=== PATIENT | female | born 2005 | race Caucasian/White ===

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

== ENCOUNTER 2024-02-21 22:07 | Emergency (ER) | payer BC, SELFPAY ==
[2024-02-21 22:51] VITALS: BP 123/76; PULSE 85; RESP 16; TEMP 36.6; O2SAT 100
[2024-02-21 22:56] LABS: BEDSIDEPREGUCG Negative (Negative)
[2024-02-21 23:06] LABS: Add Urine Microscopic? YES; Appearance Urine Clear (Clear); Bilirubin Urine Negative (Negative); Blood Urine Trace (Negative); Color Urine Yellow (Yellow); Glucose Urine UA Negative (Negative); Ketones Urine Negative (Negative); Leukocyte Esterase Ur 3+ LEU/UL (Negative); Nitrate Urine Negative (Negative); Protein Urine Negative (Negative); RBC Urine 0-2 /hpf (0-2); Specific Grav Ur 1.003 (1.001-1.035); Urobilinogen Urine 0.2 mg/dL (<2.0); WBC Urine 21-50 /hpf (0-3)
[2024-02-21 23:07] LABS: Bacteria Urine None Seen /hpf; Non Pathogenic Casts 0-2; Squamous Epithelial Cell Urine None Seen /hpf (Few)
--- NOTE | 2024-02-22 00:05 | ED.GENADULT ---
HPI - General Adult General Chief complaint: Urogenital-Female Stated complaint: uti Time Seen by Provider: 02/21/24 23:40 History of Present Illness HPI narrative: 18-year-old female presents to the emergency department for evaluation for urinary symptoms that started approximately 2 days ago. Patient denies any pain with urination but does report increased urinary frequency. Patient denies any prior history kidney stones, patient denies any flank pain denies any associated nausea vomiting. Related Data Allergies Allergy/AdvReac Type Severity Reaction Status Date / Time No Known Allergies Allergy Mild Verified 10/12/23 13:58 Review of Systems Review of Systems: All systems reviewed & are unremarkable except as noted in HPI and below PMFSH Past Medical History Medical History History of pneumonia 2007 Surgical History Surgical History History of tonsillectomy and adenoidectomy 2006 Family History Family History Mother Hypertension Social History Social History Smoking status: Never smoker Alcohol intake: never Substance use: never Lack of Transportation: No Lack of Food: Never True Current Housing: I Have Housing Concerned About Future Housing: No Difficulty Paying Gas/Electric Bills: No Difficulty Paying for Meds: No Currently Unemployed: No Education: Associate Degree Living arrangements: with family Occupation/Education: occupation Gender identity (if verbalized by the patient): Female Sexual Orientation (if Verbalized by the Patient): Straight or Heterosexual Spiritual care concerns: No Exam Narrative: APPEARANCE: Well appearing, no pain, no distress, well-nourished. HEAD: normocephalic, atraumatic. EYES: PERRLA/EOMI, conjunctivae clear. NOSE: Normal no drainage EARS:TMS clear with good light reflex. THROAT: Pharynx clear, no exudate. NECK: Supple. No adenopathy, no masses. RESPIRATORY: Airway patent, respirations nonlabored. Clear to auscultation bilaterally, no rales, rhonchi, wheezing. CARDIOVASCULAR: Regular rate and rhythm without murmurs rubs or gallops. ABDOMINAL: Soft, nontender, nondistended, normal bowel sounds MUSCULOSKELETAL: Moves all extremities. Strength/ROM intact, No edema, No calf tenderness. NEURO: Alert. Cranial nerves II through XII intact. Grossly intact SKIN: Warm, dry. Normal Color Course Vital Signs Vital signs: Vital Signs Temperature 97.8 F 02/21/24 22:51 Pulse Rate 85 02/21/24 22:51 Respiratory Rate 16 02/21/24 22:51 Blood Pressure 123/76 02/21/24 22:51 Pulse Oximetry 100 02/21/24 22:51 Temperature 97.8 F 02/21/24 22:51 Pulse Rate 85 02/21/24 22:51 Respiratory Rate 16 02/21/24 22:51 Blood Pressure 123/76 02/21/24 22:51 Pulse Oximetry 100 02/21/24 22:51 Medical Decision Making MDM Narrative Medical decision making narrative: 18-year-old female present to the emergency department for evaluation for urinary symptoms. Patient is leukocyte esterase positive does have high white blood cells in her urine. Urine culture was ordered patient was started on antibiotics. Patient was also provided Pyridium for urinary symptoms. Patient and family were comfortable with plan for treatment and discharge and close follow-up. They are also educated on reasons to return to the emergency department. All questions concerns were addressed. Differential Diagnosis Differential Diagnosis: Kidney stone, UTI, , bladder spasm Vital Signs Vital Signs: Vital Signs Temperature 97.8 F 02/21/24 22:51 Pulse Rate 85 02/21/24 22:51 Respiratory Rate 16 02/21/24 22:51 Blood Pressure 123/76 02/21/24 22:51 Pulse Oximetry 100 02/21/24 22:51 Temperature 97.8 F 02/20
[2024-02-22] MEDS: PHENAZOPYRIDINE HCL 100 MG TABLET 200 MG PO (00:11)
[2024-02-22] MEDS: CEPHALEXIN 500 MG CAPSULE PO (00:11)
== END 2024-02-22 00:16 | disposition home or self-care (01) ==
PROVIDERS: Emergency Provider Emergency Medicine; PCP Pediatrics
DX: N39.0 Urinary tract infection, site not specified (principal)
CPT/HCPCS: 81001; 81025; 87086; 99283; A9270

== ENCOUNTER 2024-03-18 14:18 | Emergency (ER) | payer BC, SELFPAY ==
--- NOTE | 2024-03-18 14:22 | ED.GENADULT ---
HPI - General Adult General Chief complaint: Urogenital-Female Stated complaint: UTI Time Seen by Provider: 03/18/24 14:22 Source: patient Mode of arrival: ambulatory Limitations: no limitations History of Present Illness HPI narrative: 18-year-old female patient presents to the [facility] with complaints of pain with urination times 4-5 days. Denies any blood in the urine. Patient states last menstrual cycle was about a month ago. Patient states she is sexually sexually active with 1 partner and does use protection. Patient states last time she was tested for STDs was about 6 months ago. Denies any vaginal discharge but states has had some vaginal itching. Patient was seen at the [facility] about a month ago with similar symptoms and was diagnosed with UTI and was given Keflex. Related Data Allergies Allergy/AdvReac Type Severity Reaction Status Date / Time No Known Allergies Allergy Mild Verified 03/18/24 14:45 Review of Systems Review of Systems: CONSTITUTIONAL: Denies fever, chills, or sweats. EYES: Denies visual changes, redness, or discharge. ENT: Denies rhinorrhea, congestion, sore throat, or otalgia. CARDIOVASCULAR: Denies chest pain, palpitations, or edema. RESPIRATORY: Denies cough or dyspnea. GASTROINTESTINAL: Denies abdominal pain, nausea, vomiting, or diarrhea. GENITOURINARY: Positive dysuria , denies hematuria. positive vaginal itching SKIN: Denies rash or itching. MUSCULOSKELETAL: Denies back pain, joint pain, or myalgia. NEUROLOGIC: Denies headache, numbness, or weakness. PSYCHIATRIC: Denies anxiety or depression. [facility] Past Medical History Medical History History of pneumonia 2007 Surgical History Surgical History History of tonsillectomy and adenoidectomy 2006 Family History Family History Mother Hypertension Social History Social History Smoking status: Never smoker Alcohol intake: never Substance use: never Lack of Transportation: No Lack of Food: Never True Current Housing: I Have Housing Concerned About Future Housing: No Difficulty Paying Gas/Electric Bills: No Difficulty Paying for Meds: No Currently Unemployed: No Education: Associate Degree Living arrangements: with family Occupation/Education: occupation Gender identity (if verbalized by the patient): Female Sexual Orientation (if Verbalized by the Patient): Straight or Heterosexual Spiritual care concerns: No Comments At the time of my signature I agree with nursing past medical history, surgical, social, and family history. There is no relevant family history pertinent to the presenting complaint. Exam Narrative: GENERAL: Well-appearing, well-nourished, and in no acute distress. HEAD: Normocephalic, atraumatic. EYES: PERRLA and EOMI. ENT: Nares clear, no rhinorrhea or epistaxis. Mucous membranes moist. NECK: Supple. No lymphadenopathy CHEST: Clear to auscultation. No respiratory distress. HEART: Regular rate and rhythm. No murmur heard. Normal peripheral pulses. ABDOMEN: Soft, nontender, nondistended, normal active bowel sounds. no CVA tenderness on percussion EXTREMITIES: Normal range of motion. No edema. SKIN: Warm, dry, no rash. NEURO: No focal deficits. Alert and oriented x3. Course Course Level of Care: Express Care Visit Vital Signs Vital signs: Vital Signs Temperature 36.8 C 03/18/24 14:29 Pulse Rate 113 H 03/18/24 14:29 Respiratory Rate 16 03/18/24 14:29 Blood Pressure 124/77 03/18/24 14:29 Pulse Oximetry 100 03/18/24 14:29 Temperature 36.8 C 03/18/24 14:29 Pulse Rate 113 H 03/18/24 14:29 Respiratory Rate 16 03/18/24 14:29 Blood Pressure 124/77 03/18/24 14:29 Pulse Oximetry 100 03/18/24 14:29 Vital signs reviewed. Medical Decision Making MDM Narrative Medical decision making narrative: plan of care patient is discharged home with oral antibiotics as well as an antifungal pill to take after antibiotics are completed to treat any type of possible yeast infection. Discussed with patient she continues to have symptoms highly recommended she follow-up with her OBGYN. Differential Diagnosis Differential Diagnosis: Differential diagnosis: Uncomplicated lower UTI, uncomplicated UTI, pyelonephritis Vital Signs Vital Signs: Vital Signs Temperature 36.8 C 03/18/24 14:29 Pulse Rate 113 H 03/18/24 14:29 Respiratory Rate 16 03/18/24 14:29 Blood Pressure 124/77 03/18/24 14:29 Pulse Oximetry 100 03/18/24 14:29 Temperature 36.8 C 03/18/24 14:29 Pulse Rate 113 H 03/18/24 14:29 Respiratory Rate 16 03/18/24 14:29 Blood Pressure 124/77 03/18/24 14:29 Pulse Oximetry 100 03/18/24 14:29 Lab Data Labs: Lab Results 03/18/24 Range/Units 14:32 POC Urine Color Dark POC Urine Clarity Cloudy POC Urine pH 5.5 POC Ur Specif Clive 1.030 POC Urine Protein Trace (Negative) POC Ur Glucose (UA) Negative (Negative) POC Urine Ketones Negative (Negative) POC Urine Blood Negative (Negative) POC Urine Nitrite Negative (Negative) POC Urine Bilirubin Negative (Negative) POC Urine Urobilinogen 0.2 POC U Leukocyte Esteras Trace (Negative) POC Urine HCG, Qual Negative (Negative) Critical Care Time Critical Care Time Critical Care Time: No Discharge Plan Discharge Clinical Impression: Urinary tract infection Patient Disposition: Home, Self-Care Condition: Stable Instructions: Antibiotic Form, Urinary Tract Infection in Women (ED) Additional Instructions: We will send a urine culture off to the lab; if the culture identifies an organism that the prescribed antibiotic will not treat, you will receive a phone call from an urgent care staff member and an appropriate antibiotic will be prescribed. -Your symptoms should begin to improve within a day of starting antibiotics. But you should finish all the antibiotic pills you get. Otherwise your infection might come back. -Also recommend: drink more fluid. It might help flush out germs, and it does no harm -Tylenol/ibuprofen prn for pain or fever please take the antifungal pill after you have completed the antibiotic to treat any type of yeast infection that could be occurring -Follow-up with your primary care provider for urine recheck or seek ER visit if condition worsens with high fever, nausea, vomiting and severe back pain. Prescriptions: New fluconazole 150 mg tablet 150 mg PO ONCE Qty: 1 0RF Rx Instructions: as a single dose nitrofurantoin monohyd/m-cryst [Macrobid] 100 mg capsule 100 mg PO Q12H 5 Days Qty: 10 0RF Rx Instructions: must administer with a meal/food No Action drospirenone-ethinyl estradiol [HI (28)] 3-0.02 mg tablet 1 tablet PO DAILY Qty: 84 4RF cephalexin 500 mg capsule 500 mg PO Q8H 7 Days Qty: 21 0RF phenazopyridine [Pyridium] 100 mg tablet 100 mg PO TID PRN (Reason: pain) Qty: 6 0RF Follow-up/Referrals: Raven George MD [Primary Care Provider] - Time of Disposition: 14:44
[2024-03-18 14:29] VITALS: BP 124/77; PULSE 113; RESP 16; TEMP 36.8; O2SAT 100
[2024-03-18 14:40] LABS: BEDSIDEPREGUCG Negative (Negative); EDUAAPPEAR Cloudy; EDUABILI Negative (Negative); EDUABLOOD Negative (Negative); EDUACOLOR1 Dark; EDUAGLUCOSE Negative (Negative); EDUAKETONE Negative (Negative); EDUALEUKO Trace (Negative); EDUANITRATE Negative (Negative); EDUAPH 5.5; EDUAPROTEIN Trace (Negative); EDUAUROBILI 0.2
== END 2024-03-18 14:55 | disposition home or self-care (01) ==
PROVIDERS: Emergency Provider Nurse Practitioner Family; PCP Pediatrics
DX: N39.0 Urinary tract infection, site not specified (principal)
CPT/HCPCS: 81003; 81025; 87086; 99213; G0463

== ENCOUNTER 2024-06-01 09:07 | Outpatient (CLI) | payer BC, SELFPAY ==
--- NOTE | ~2024-06-01 | US_ITS ---
US breast LT limited INDICATION: Palpable left breast abnormality TECHNIQUE: Dedicated Limited left breast ultrasound COMPARISON: No prior studies for comparison. FINDINGS: The left breast is/are composed of normal heterogeneous echotexture without focal solid or cystic mass. IMPRESSION: 1: Normal limited left breast ultrasound. BI-RADS CATEGORY 1 - NEGATIVE Reviewed, dictated and finalized at location A. ITAL MONITOR
== END 2024-06-01 09:08 | disposition home or self-care (01) ==
PROVIDERS: Visit Provider Obstetrics & Gynecology
DX: N63.24 Unspecified lump in the left breast, lower inner quadrant (principal)
CPT/HCPCS: 76642

== ENCOUNTER 2025-03-20 09:52 | Outpatient (CLI) | payer OTHER, SELFPAY ==
[2025-03-20 19:06] LABS: Hematocrit 40.2 % (37.0-47.0); Hemoglobin 12.4 g/dL (12.0-15.0); Mean Corpuscular HGB Conc 30.8 g/dl (32-36); Mean Corpuscular Hemoglobin 28.7 pg (26-34); Mean Corpuscular Volume 93.1 fl (80-100); Platelet Count Result 254 k/mm3 (150-375); Red Blood Count 4.32 M/mm3 (4.2-5.4); White Blood Count 3.6 K/mm3 (4.5-10.0)
[2025-03-20 19:09] LABS: Alanine Aminotransferase 17 U/L (6-35); Albumin Level 4.5 g/dL (3.5-5.1); Alkaline Phosphatase 53 U/L (38-126); Anion Gap 9 mmol/L (4-12); Aspartate Amino Transferase 52 U/L (14-36); Bilirubin,Total 0.6 mg/dL (0.2-1.3); Blood Urea Nitrogen 8 mg/dL (7-17); Calcium 9.3 mg/dL (8.4-10.2); Carbon Dioxide 24 mmol/L (22-30); Chloride 104 mmol/L (98-107); Cholesterol 161 mg/dL (0-200); Estimated Glomerular Filt Rate > 60; Glucose 85 mg/dL (65-110); HDL Direct 97 mg/dL; Potassium 4.1 mmol/L (3.4-5.0); Sodium 137 mmol/L (137-145); Total Protein 8.2 g/dL (6.3-8.2); Triglycerides 54 mg/dL (<150)
[2025-03-20 19:22] LABS: Free T4 Free Thyroxine 1.08 ng/dL (0.78-2.19)
[2025-03-20 19:41] LABS: Thyroid Stimulating Hormone 1.950 uIU/mL (0.465-4.680)
--- OUTSIDE RECORDS SUMMARY | 2025-03-21 09:41 | XMS_ITS | Clinical Summary ---
Author Organization [facility] Address [address] [place] [address] Care Team Providers Care Certified Legal Investigator Name Role Phone Sandra Spears MD Primary Care Provider Unavailab le Source Comments [facility],non-owned Affiliates and Associated Physician Practices is amultiple site organization consisting of ambulatory clinics and hospital sitesin [place], [place], [place] and [place]. This disclosure is being madepursuant to the Care Everywhere program and may not contain all information available regarding this patient. Last updated 18.[facility] Allergies No known active allergies Medications * Be aware that medications may not be up to date on this document. Alwaysverify current medications with the patient. 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 Gender Identity Not on file Sexual Orientation Not on file Plan of Treatment Health Maintenance Due Date Last Done Comments HIV SCREENING 2018 HPV VACCINE (1 - 3-dose series) 2018 CHLAMYDIA/GONORRHEA SCREENING 2019 MENINGOCOCCAL (Group B) VACC INE SHARED DECISION-MAKING (1 of 2 - Standard) 2019 HEPATITIS C SCREENING 06/30/2021 DTAP/TDAP/TD VACCINES (1 - Tdap) 2022 HEPATITIS B VACCINE (1 of 3 - 19+ 3-dose series) 2022 DEPRESSION SCREENING 05/16/2024 COVID-19 VACCINE (1 - 2023-2 5 season) 2025 INFLUENZA VACCINE (#1) 2025 ZOSTER VACCINE (1 of 2) 2053 HIB VACCINE Aged Out No longer eligi ble based on patient's age to complete this topic MENINGOCOCCAL GROUPS A/C/Y/W VACCINE Aged Out No longer eligible b ased on patient's age to complete this topic PNEUMOCOCCAL VACCINE Aged Out No long er eligible based on patient's age to complete this topic Insurance [employer] Care Teams Certified Legal Investigator Relationship Specialty Start Date End Date Sandra Spears MD PCP - General Pediatrics 07/03/13
== END 2025-03-20 09:53 | disposition home or self-care (01) ==
LOC: ANHBWCLAB 09:52
PROVIDERS: PCP Nurse Practitioner Adult Health; Visit Provider Nurse Practitioner Adult Health
DX: Z00.00 Encounter for general adult medical examination without abnormal findings (principal); F41.1 Generalized anxiety disorder
CPT/HCPCS: 36415; 80053; 80061; 84439; 84443; 85027; 86376

== ENCOUNTER 2025-05-01 13:19 | Outpatient (CLI) | payer OTHER, SELFPAY ==
[2025-05-01 19:26] LABS: Hematocrit 38.7 % (37.0-47.0); Hemoglobin 12.3 g/dL (12.0-15.0); Immature Granulocyte Percent A 0.3 % (0-0.5); Lymphocytes Absolute Auto 1.46 K/mm3 (0.9-3.2); Mean Corpuscular HGB Conc 31.8 g/dl (32-36); Mean Corpuscular Hemoglobin 29.0 pg (26-34); Mean Corpuscular Volume 91.3 fl (80-100); Nucleated Red Blood Cells Absolute Auto 0.000 K/mm3 (0.0-0.012); Nucleated Red Blood Cells Perc 0.0 % (0.0-0.2); Platelet Count Result 247 k/mm3 (150-375); Red Blood Count 4.24 M/mm3 (4.2-5.4); White Blood Count 9.5 K/mm3 (4.5-10.0)
[2025-05-01 19:41] LABS: Iron 93 ug/dL (37-170)
[2025-05-01 19:52] LABS: Percent Iron Saturation 21 % (20-50)
[2025-05-01 20:23] LABS: Ferritin 9.85 ng/mL (6.24-137)
== END 2025-05-01 13:20 | disposition home or self-care (01) ==
LOC: ANHBWCLAB 13:19
PROVIDERS: PCP Nurse Practitioner Adult Health; Visit Provider Nurse Practitioner Adult Health
DX: F41.1 Generalized anxiety disorder (principal); D72.819 Decreased white blood cell count, unspecified
CPT/HCPCS: 36415; 82728; 83540; 83550; 85025

== ENCOUNTER 2025-05-02 08:20 | Outpatient (NON) | payer OTHER, SELFPAY ==
--- NOTE | 2025-05-02 | S_PTH ---
PATIENT: Jemima Cowart LOC: [facility] U#:[id number] AGE/SX: 19/F ROOM: RE05/02/[address]: Zeinab Brown MD : 2005 BED: DIS: 05/02/2025 SPEC #: [id number] RECD: 05/03/25 08:43 STATUS: JAYANT REQ #: [id number] JOEY: 05/02/25 00:[address]: Zeinab Brown DEPT: [facility] Surgical RECD BY: Rosa Small ENTERED: 05/03/25 08:43 SP TYPE: Surgical OTHR DR: Ryann Tena APRN Tissues: A - Breast Tissue Procedures: Hematoxylin and Eosin Stain Gross and Microscopic Level 4
--- OUTSIDE RECORDS SUMMARY | 2025-05-03 08:28 | XMS_ITS ---
Author Organization Unknown ENCOUNTERS Encounter Performer Location Date Diagnosis Diagnosis [facility] [address] [place] [address] [id number] Outpatient [facility] [address] [place] [address] [id number] JANIE Outpatient [facility] [address] [place] [address] [id number] JANIE Outpatient [facility] [address] [place] [address] [id number] JANIE Pre Admit [facility] [address] [place] [address] [id number] Emergency [facility] [address] [place] [address] [id number] JANIE *Note: Encounters from your own facility or health system may be excluded. Allergies, Adverse Reactions, Alerts Allergen Type Severity Identification Date Medications Name Date Quantity Days Supplied [facility] Number
--- OUTSIDE RECORDS SUMMARY | 2025-05-03 08:28 | XMS_ITS | Clinical Summary ---
Author Organization [facility] Address [address] [place] [address] Care Team Providers Care Principal System Software Engineer Name Role Phone Sandra Spears MD Primary Care Provider Unavailab le Source Comments [facility],non-owned Affiliates and Associated Physician Practices is amultiple site organization consisting of ambulatory clinics and hospital sitesin [place], [place], [place] and [place]. This disclosure is being madepursuant to the Care Everywhere program and may not contain all information available regarding this patient. 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
== END 2025-05-02 08:21 | disposition home or self-care (01) ==
LOC: ANHLAB 05-03 08:22
PROVIDERS: PCP Nurse Practitioner Adult Health; Visit Provider Plastic Surgery
DX: N63.24 Unspecified lump in the left breast, lower inner quadrant (principal)
CPT/HCPCS: 88305

== ENCOUNTER 2025-05-02 10:42 | Day surgery (SDC) | payer OTHER, SELFPAY ==
--- NOTE | 2025-05-02 10:49 | WPDANESEPPF ---
Anes - Initial Pre Proc Eval Procedure: Operation Date: 05/02/25 12:30 Proposed Procedures p Excisional Biopsy Left Breast Mass - Jacqueline Gilliam MD Date/Time: 05/02/25 10:49 Surgeon: Jacqueline Gilliam MD Pre Op Diagnosis: Left Breast Mass Patient Data Age: 19 Gender: F Height: 1.63 m Weight: 65.771 kg Allergies Allergy/AdvReac Type Severity Reaction Status Date / Time No Known Allergies Allergy Mild Verified 05/02/25 11:01 Home Medications ?Medication ?Instructions ?Recorded ?Confirmed ?Type drospirenone 3 mg-ethinyl 1 tablet PO DAILY #84 tabs 10/18/24 05/02/25 Rx estradiol 0.02 mg tablet (HI (28)) Patient hx anesthesia problems: none Family hx anesthesia problems: none Results Review: All pre-operative results and documents have been reviewed as part of the pre-operative evaluation. [facility] Past Medical History Medical History History of pneumonia 2007 Surgical History Surgical History History of tonsillectomy and adenoidectomy 2005 Family History Family History Mother Hypertension Social History Social History Years smoked: 5 Smoking status: Current every day smoker Tobacco type: e-cigarettes/vaping Second hand tobacco smoke exposure: Yes (as a child) Alcohol intake: current Drinks per week: 4 Alcohol use details: 1-4 a week Substance use: never Substance use type: does not use Lack of Transportation: No Lack of Food: Never True Current Housing: I Have Housing Concerned About Future Housing: No Difficulty Paying Gas/Electric Bills: No Difficulty Paying for Meds: No Currently Unemployed: No Education: Associate Degree Difficulty w/ Childcare or Family Care: No Living arrangements: with family Occupation/Education: occupation Gender identity (if verbalized by the patient): Female Sexual Orientation (if Verbalized by the Patient): Straight or Heterosexual Spiritual care concerns: No Agree to blood products: No Anes - Eval Final PreProcedure Day of Procedure 05/02/25 10:49 Heart: regular rate and rhythm Lungs: clear to auscultation Airway: Mallampati scale class 1 Neurological: alert and oriented Last oral intake: >/= 8 hours ASA classification: II Anesthetic plan: proceed Anesthesia type and monitoring: general Results Review: All pre-operative results and documents have been reviewed as part of the pre-operative evaluation. Informed Consent: The patient's anesthetic plan and its attendant risks and benefits were discussed with the patient/family/POA. Questions were solicited and answers provided to the satisfaction of the patient/family/POA.
[2025-05-02 11:03] VITALS: BP 131/87; PULSE 75; RESP 15; TEMP 37.1; O2SAT 100
[2025-05-02] MEDS: LACTATED RINGERS 1,000 ML 30 ML IV CONT (11:12)
--- OUTSIDE RECORDS SUMMARY | 2025-05-02 11:53 | XMS_ITS | Clinical Summary ---
Author Organization [facility] Address [address] [place] [address] Care Team Providers Care Mogul Operator Name Role Phone Sandra Spears MD Primary Care Provider Unavailab le Source Comments [facility],non-owned Affiliates and Associated Physician Practices is amultiple site organization consisting of ambulatory clinics and hospital sitesin [place], [place], [place] and [place]. This disclosure is being madepursuant to the Care Everywhere program and may not contain all information available regarding this patient. 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 Gender Identity Not on file Sexual Orientation [...] DEPRESSION SCREENING 05/16/2024 COVID-19 VACCINE (1 - 2024-2 6 season) 2025 INFLUENZA VACCINE (#1) 2025 ZOSTER VACCINE (1 of 2) 2053 HIB VACCINE Aged Out No longer eligi ble based on patient's age to complete this topic MENINGOCOCCAL GROUPS A/C/Y/W VACCINE Aged Out No longer eligible b ased on patient's age to complete this topic PNEUMOCOCCAL VACCINE Aged Out No long er eligible based on patient's age to complete this topic Insurance [facility] Address: [facility] [address] [place] [address] Care Teams Mogul Operator Relationship Specialty Start Date End Date Sandra Spears MD PCP - General Pediatrics 07/03/13
--- OUTSIDE RECORDS SUMMARY | 2025-05-02 11:53 | XMS_ITS ---
Author Organization Unknown ENCOUNTERS Encounter Performer Location Date Diagnosis Diagnosis Status Outpatient [facility] [address] [place] [address] [id number] JANIE Outpatient [facility] [address] [place] [address] [id number] JANIE Outpatient [facility] [address] [place] [address] [id number] JANIE Pre Admit [facility] [address] [place] [address] [id number] Emergency [facility] [address] [place] [address] [id number] JANIE *Note: Encounters from your own facility or health system may be excluded. Allergies, Adverse Reactions, Alerts Allergen Type Severity Identification Date Medications Name Date Quantity Days Supplied GPI Number
[2025-05-02] MEDS: ACETAMINOPHEN 500 MG TABLET 1000 MG PO (12:00)
--- NOTE | 2025-05-02 12:00 | WPDHPUPDATE1 ---
History and Physical Update Update Date/Time: 05/02/25 12:00 - Excisional biopsy of left breast mass History and Physical has been reviewed, including an updated exam of the patient. There are NO changes in the patient's condition. Risks, benefits, and alternatives have been discussed and questions answered. Patient agrees to proceed with procedure.
[2025-05-02] MEDS: BUPIVACAINE/EPINEPHRINE 0.5% 30 ML VIAL (12:46)
--- NOTE | 2025-05-02 13:03 | W.PM.PROC2 ---
Procedure Note - Detailed Date of Procedure 05/02/25 Pre-op Diagnosis Left Breast Mass Post-op Diagnosis Same (Left breast lipoma) Procedure Performed Excisional biopsy of left breast mass Surgeon Jacqueline Gilliam MD Anesthesia MAC Description of Procedure Patient was identified in the preoperative holding area brought to the operating room suite. She was laid supine in the OR table sequential compression devices were applied. Anesthesia was induced without difficulty. The left chest area was prepped and draped in a sterile fashion. The left breast mass which was found at 8 o'clock position along the IMF just lateral to the sternum was easily palpable on exam and a small incision was made overlying this area. Dissection was carried down through the dermis into the subcutaneous tissue and a small encapsulated lipoma was identified and completely excised. This was sent to pathology as a permanent specimen. The cavity was irrigated with saline hemostasis was assured. The deep dermal layer was closed with interrupted 3-0 Vicryl and the skin was then closed with 4-0 Monocryl in a subcuticular fashion. Steri-Strips were applied followed by a sterile dressing. Patient was awoken from anesthesia and taken to the recovery area in stable condition. All needles, instruments, sponge counts were correct as reported by the operating room staff. Patient tolerated the procedure well with no immediate complications. Estimated Blood Loss 0 Pathology Yes Complications No immediate complications Condition Stable Disposition PACU [facility] Billing Surgery - Charge Forward: Surgery Billing (CPT 16434)
[2025-05-02 13:05] VITALS: BP 109/67; PULSE 85; RESP 16; O2SAT 100
[2025-05-02 13:20] VITALS: BP 110/68; PULSE 74; RESP 13; O2SAT 99
[2025-05-02 13:40] VITALS: BP 110/70; PULSE 65; RESP 14; O2SAT 100
== END 2025-05-02 13:44 | disposition home or self-care (01) ==
PROVIDERS: PCP Nurse Practitioner Adult Health; Visit Provider Surgery
PROC: (CPT 21555; principal; 2025-05-02 12:30)
DX: D17.1 Benign lipomatous neoplasm of skin and subcutaneous tissue of trunk (principal)
CPT/HCPCS: 21555